=== PATIENT | male | born 1975 | race Two or more races ===

== ENCOUNTER 2017-10-27 07:59 | Emergency (ER) | payer BC ==
[~2017-10-27] VITALS: Ht 175.3 cm; Wt 76.2 kg
--- NOTE | 2017-10-27 08:08 | NUR ---
DR STEINBERG AT BEDSIDE
[2017-10-27] MEDS ORDERED: SILVER NITRATE APPLICATOR 1 EA BOX ONE (08:14)
--- NOTE | 2017-10-27 08:18 | NUR ---
BROUGHT IN FROM HOME BY . TISSUE LEFT NOSTRIL W/ NOSE CLIP. STATES HE HAS H/O NOSE POLYPS. HAS ALLERGIES TODAY AND BLEED STARTED AFTER BLOWING NOSE. NO APPARENT DISTRESS.
[2017-10-27 09:00] VITALS: BP 136/89
--- NOTE | 2017-10-27 09:04 | NUR ---
EPISTAXIS CONTROLLED WITH NASAL PACKING BY DR STEINBERG,TOLERATED WELL,VERBALIZED ACI.INSTRUCTED TO F/U W/ ENT. D/C TO WR WITH /ARTILLERY OFFICER.
== END 2017-10-27 09:08 | disposition home or self-care (01) ==
LOC: ER 08:02
DX: R04.0 Epistaxis (principal); E78.00 Pure hypercholesterolemia, unspecified; Z88.1 Allergy status to other antibiotic agents
CPT/HCPCS: A4606; A6402; Z7610